=== PATIENT | female | born 1965 | race Caucasian/White ===

== ENCOUNTER → 2024-07-18 17:23 | Outpatient (REF) | payer OTHER, SELFPAY | LOC: RAD 17:23 | PROVIDERS: ATTENDING PHYSICIAN Internal Medicine Rheumatology; FAMILY PHYSICIAN Family Medicine | DX: M25.571 Pain in right ankle and joints of right foot (principal); M79.671 Pain in right foot | CPT/HCPCS: 73630 ==

== ENCOUNTER → 2024-12-21 18:42 | Outpatient (REF) | payer OTHER, SELFPAY | LOC: CLAB 18:42 | PROVIDERS: ATTENDING PHYSICIAN Otolaryngology | DX: J34.2 Deviated nasal septum (principal) | CPT/HCPCS: 88300 ==

== ENCOUNTER → 2025-05-31 15:12 | Outpatient (REF) | payer OTHER, SELFPAY | LOC: MRI 15:12 | PROVIDERS: ATTENDING PHYSICIAN Internal Medicine Gastroenterology; FAMILY PHYSICIAN Family Medicine | DX: K76.0 Fatty (change of) liver, not elsewhere classified (principal) | CPT/HCPCS: 74181; 76391 ==

== ENCOUNTER 2025-07-16 06:20 | Day surgery (SDC) | payer OTHER, SELFPAY ==
[2025-07-16 10:01] LABS: Glucose - Point of Care 119 mg/dl (70-99)
== END 2025-07-16 11:32 | disposition home or self-care (01) ==
LOC: GI 06:20
PROVIDERS: ATTENDING PHYSICIAN Internal Medicine Gastroenterology
DX: Z12.11 Encounter for screening for malignant neoplasm of colon (principal); D12.2 Benign neoplasm of ascending colon; D12.3 Benign neoplasm of transverse colon; D12.4 Benign neoplasm of descending colon; K63.5 Polyp of colon; K55.20 Angiodysplasia of colon without hemorrhage; K64.9 Unspecified hemorrhoids
CPT/HCPCS: 45385; 45380; 82962; 88305